=== PATIENT | female | born 1975 | race Caucasian/White ===

== ENCOUNTER → 2018-01-30 14:12 | Outpatient (CLI) | payer OTHER, SELFPAY ==
[2018-02-04 14:14] LABS: HPV Reflexed? NOT INDICATED
== END ==
PROVIDERS: Visit Provider Obstetrics & Gynecology
DX: Z12.4 Encounter for screening for malignant neoplasm of cervix (principal)
CPT/HCPCS: 88175; G0145

== ENCOUNTER → 2018-03-08 08:37 | Outpatient (CLI) | payer OTHER, SELFPAY ==
--- NOTE | 2018-03-08 08:47 | BI_ITS ---
MAMMOGRAPHY - BILATERAL SCREENING 3-D ALEJANDRO SYNTHESIS REASON FOR EXAM: Female, 42 years old. Bilateral Screening 3-D tomosynthesis PERTINENT HISTORY: History of hormone use for over 20 years.. TECHNIQUE: 2-D mammograms and 3-D Alejandro synthesis of the breast (s) were performed. CAD was performed. COMPARISON: Baseline examination. FINDINGS: The breast composition is composed of scattered fibroglandular density. Scattered benign calcifications are seen. No dense spiculated masses or suspicious microcalcifications are identified. No architectural distortion is identified. There is no skin thickening or retraction. There has been no significant change since the prior study. BI/SCREENING MAMM (CAD), BILAT IMPRESSION: No mammographic signs of malignancy. Routine yearly mammograms recommended. ASSESSMENT CATEGORY: BIRADS Category 2: Benign. A letter regarding these results will be sent to the patient by the facility within 30 days. FOLLOW UP RECOMMENDATION: Yearly follow up mammogram recommended. (A) Approximately 10% of breast cancers are not detected by mammography. A normal mammogram should not delay biopsy of a clinically suspicious abnormality. Electronically Signed: Michael Sandoval MD at 17:37 EDT , Service support ,
== END ==
PROVIDERS: Visit Provider Obstetrics & Gynecology
DX: Z12.31 Encounter for screening mammogram for malignant neoplasm of breast (principal)
CPT/HCPCS: 77063; 77067

== ENCOUNTER → 2019-06-04 11:26 | Outpatient (CLI) | payer OTHER, SELFPAY ==
--- NOTE | 2019-06-04 11:31 | BI_ITS ---
MAMMOGRAPHY - BILATERAL SCREENING REASON FOR EXAM: Female, 43 years old. Routine annual screening examination. PERTINENT HISTORY: Non-contributory. TECHNIQUE: Digital bilateral breast alejandro (3D mammographic acquisition) in the CC and MLO projections. 2-D mediolateral oblique (MLO) and craniocaudad (CC) views of both breasts were obtained. CAD: Full Field Digital Mammography with Computer Added Detection was performed. COMPARISON: Comparison is made with prior examination dated March 08, 2018. FINDINGS: Breast Composition: The breasts are extremely dense, which lowers the sensitivity of mammography. There are no dominant masses or suspicious calcifications. No other significant abnormalities are identified. There has been no significant change since the prior study. BI/SCREEN MAMM (CAD) W/ALEJANDRO BILAT IMPRESSION: Stable bilateral screening mammogram. Yearly follow-up mammogram recommended. (A) ASSESSMENT CATEGORY: BIRADS Category 1: Negative. A letter regarding these results will be sent to the patient by the facility within 30 days. Approximately 10% of breast cancers are not detected by mammography. A normal mammogram should not delay biopsy of a clinically suspicious abnormality. [id number] Electronically Signed: Chris Escobar, at 15:04 EDT , Service support ,
== END ==
PROVIDERS: Referring Provider Obstetrics & Gynecology; Visit Provider Obstetrics & Gynecology
DX: Z12.31 Encounter for screening mammogram for malignant neoplasm of breast (principal)
CPT/HCPCS: 77063; 77067

== ENCOUNTER → 2020-05-12 | Outpatient (CLI) | payer OTHER, SELFPAY ==
[2020-05-16 08:23] LABS: HPV Reflexed? NOT INDICATED
== END | disposition home or self-care (01) ==
LOC: LABSPEC 11:35
PROVIDERS: Visit Provider Obstetrics & Gynecology
DX: Z12.4 Encounter for screening for malignant neoplasm of cervix (principal)
CPT/HCPCS: 88175; G0145

== ENCOUNTER → 2020-06-08 10:37 | Outpatient (CLI) | payer OTHER, SELFPAY ==
--- NOTE | 2020-06-08 10:39 | BI_ITS ---
MAMMOGRAPHY - BILATERAL SCREENING REASON FOR EXAM: Female, 44 years old. Routine annual screening examination. PERTINENT HISTORY: Non-contributory. TECHNIQUE: Digital bilateral breast alejandro (3D mammographic acquisition) in the CC and MLO projections. 2-D mediolateral oblique (MLO) and craniocaudad (CC) views of both breasts were obtained. CAD: Full Field Digital Mammography with Computer Added Detection was performed. COMPARISON: Comparison is made with prior study dated 06/04/2019 and 03/08/2018. FINDINGS: Breast Composition: The breasts are extremely dense, which lowers the sensitivity of mammography. There are no dominant masses or suspicious calcifications. No other significant abnormalities are identified. There has been no significant change since the prior study. BI/SCREEN MAMM (CAD) W/ALEJANDRO BILAT IMPRESSION: Stable bilateral screening mammogram. Yearly follow-up mammogram recommended. (A) ASSESSMENT CATEGORY: BIRADS Category 1: Negative. A letter regarding these results will be sent to the patient by the facility within 30 days. Approximately 10% of breast cancers are not detected by mammography. A normal mammogram should not delay biopsy of a clinically suspicious abnormality. [id number] Electronically Signed: Chris Escobar, at 11:20 EDT , Service support ,
== END ==
PROVIDERS: Referring Provider Obstetrics & Gynecology; Visit Provider Obstetrics & Gynecology
DX: Z12.31 Encounter for screening mammogram for malignant neoplasm of breast (principal)
CPT/HCPCS: 77063; 77067

== ENCOUNTER 2021-12-15 12:03 | Outpatient (CLI) | payer OTHER, SELFPAY ==
--- NOTE | 2021-12-15 12:37 | BI_ITS ---
MAMMOGRAPHY - BILATERAL SCREENING REASON FOR EXAM: Female, 46 years old. Routine annual screening examination. PERTINENT HISTORY: Non-contributory. TECHNIQUE: Digital bilateral breast alejandro (3D mammographic acquisition) in the CC and MLO projections. 2-D mediolateral oblique (MLO) and craniocaudad (CC) views of both breasts were obtained. CAD: Full Field Digital Mammography with Computer Added Detection was performed. COMPARISON: Comparison is made with prior examination of 06/08/2020 and 06/04/2019. FINDINGS: Breast Composition: The breasts are extremely dense, which lowers the sensitivity of mammography. There are no dominant masses or suspicious calcifications. No other significant abnormalities are identified. There has been no significant change since the prior study. BI/SCRN MAMM (CAD)W/ALEJANDRO BILAT IMPRESSION: Stable bilateral screening mammogram. Yearly follow-up mammogram recommended. (A) ASSESSMENT CATEGORY: BIRADS Category 1: Negative. A letter regarding these results will be sent to the patient by the facility within 30 days. Approximately 10% of breast cancers are not detected by mammography. A normal mammogram should not delay biopsy of a clinically suspicious abnormality. [id number] Electronically Signed: Chris Escobar MD at 13:58 EST ,
== END 2021-12-15 23:59 | disposition home or self-care (01) ==
LOC: OPBI 12:33
PROVIDERS: Referring Provider Obstetrics & Gynecology; Visit Provider Obstetrics & Gynecology
DX: Z12.31 Encounter for screening mammogram for malignant neoplasm of breast (principal)
CPT/HCPCS: 77063; 77067

== ENCOUNTER → 2022-10-29 | Outpatient (CLI) | payer OTHER, SELFPAY ==
[2022-10-29 11:26] LABS: Hemoglobin A1c 4.9 % (3.8-5.6)
[2022-10-29 11:42] LABS: Vitamin D,25 Hydroxy 35.6 ng/mL
[2022-10-29 11:49] LABS: T4 Free Direct 0.92 ng/dL (0.76-1.46)
== END | disposition home or self-care (01) ==
LOC: WOBLAB 10:47
PROVIDERS: Visit Provider Student in an Organized Health Care Education/Training Program
DX: Z01.419 Encounter for gynecological examination (general) (routine) without abnormal findings (principal)
CPT/HCPCS: 36415; 82306; 83036; 84439; 84443

== ENCOUNTER → 2022-12-18 | Outpatient (CLI) | payer OTHER, SELFPAY ==
--- NOTE | 2022-12-18 09:51 | BI_ITS ---
MAMMOGRAPHY - BILATERAL SCREENING 3-D TOMOSYNTHESIS REASON FOR EXAM: Female, 47 years old. Routine screening PERTINENT HISTORY: No significant family history. TECHNIQUE: 2-D mammograms and 3-D Tomosynthesis of the breast (s) were performed. CAD was performed. COMPARISON: 12/15/2021 FINDINGS: The breast composition is heterogeneously dense that can obscure small breast masses. Scattered benign calcifications are seen. No dense spiculated masses or suspicious microcalcifications are identified. No architectural distortion is identified. There is no skin thickening or retraction. There has been no significant change since the prior study. BI/SCRN MAMM (CAD)W/ALEJANDRO BILAT IMPRESSION: No mammographic signs of malignancy. Routine yearly mammograms recommended. ASSESSMENT CATEGORY: BIRADS Category 2: Benign. A letter regarding these results will be sent to the patient by the facility within 30 days. FOLLOW UP RECOMMENDATION: Yearly follow up mammogram recommended. (A) Approximately 10% of breast cancers are not detected by mammography. A normal mammogram should not delay biopsy of a clinically suspicious abnormality. Electronically Signed: Ede Gutiérrez MD at 11:00 EDT ,
== END | disposition home or self-care (01) ==
LOC: OPBI 09:49
PROVIDERS: Visit Provider Student in an Organized Health Care Education/Training Program
DX: Z12.31 Encounter for screening mammogram for malignant neoplasm of breast (principal)
CPT/HCPCS: 77063; 77067

== ENCOUNTER 2024-06-06 09:34 | Emergency (ER) | payer OTHER, SELFPAY ==
[2024-06-06 09:35] VITALS: BP 139/80; PULSE 121; RESP 22; TEMP 36.3; O2SAT 99
[2024-06-06 09:38] VITALS: BMI 28.8
--- NOTE | 2024-06-06 10:11 | EKG12_ITS ---
Test Reason : SOB Blood Pressure : / mmHG Vent. Rate : 120 BPM Atrial Rate : 120 BPM P-R Int : 134 ms QRS Dur : 066 ms QT Int : 298 ms P-R-T Axes : 048 -16 053 degrees QTc Int : 421 ms Sinus tachycardia Otherwise normal ECG Confirmed by KEHINDE AMIN, ERICK ([id number]), advertising editor ZEHRA BOWER ([id number]) on 06/09/2024 8:09:48 AM Referred By: Confirmed By:ERICK BUSBY MD
--- NOTE | 2024-06-06 10:11 | RAD_ITS ---
STUDY: X-RAY CHEST REASON FOR EXAM: Female, 48 years old. Cough TECHNIQUE: Frontal view of the chest COMPARISON: None. FINDINGS: The lungs are clear. There are no pleural effusions. There is no pneumothorax. The heart is normal in size. The visualized osseous structures are within normal limits. RAD/Chest 1 View (Portable) IMPRESSION: No acute thoracic pathology. Electronically Signed: Sal Escobar MD at 11:23 EDT ,
--- NOTE | 2024-06-06 10:13 | EX.ED.DYSGE1 ---
HPI History of Present Illness Chief Complaint: Shortness of Breath Informant: patient and spouse/S.O. Narrative Narrative: 48-year-old female presenting to the emergency room chief complaint of COVID-19. Patient states she was diagnosed Saturday with COVID-19. She has sore throat productive cough. Fevers have subsided. No vomiting or diarrhea. Decreased p.o. intake. Generalized fatigue. Patient states her chest feels heavy but is not experiencing any pleuritic pain. No rashes. reports that she had a strep test at urgent care that was also negative. PFSH PFSH Home Medications ?Medication ?Instructions ?Recorded ?Last Taken ?Type albuterol sulfate 90 mcg/actuation 2 puff inhalation Q4H PRN PRN 06/06/24 Unknown Rx aerosol inhaler (Ventolin HFA) Wheezing ##1 azithromycin 250 mg tablet See Rx Instructions PO .COMPLEX #6 06/06/24 Unknown Rx (Zithromax Z-Bryce) tabs dexamethasone 6 mg tablet 6 mg PO DAILY #6 tabs 06/06/24 Unknown Rx Allergy/AdvReac Type Severity Reaction Status Date / Time No Known Allergies Allergy Verified 06/06/24 09:34 Social History Smoking Status: Former smoker ROS ROS ED ROS Narrative Generalized fatigue Constitutional Constitutional ED: Reports chills and fever(s); Denies weight loss Eyes Eyes: Denies change in vision or diplopia ENT ENT ED: Reports sore throat; Denies ear pain or rhinorrhea Cardiovascular Cardiovascular: Reports racing heartbeat; Denies chest pain, orthopnea or palpitations Respiratory/Chest Respiratory/Chest: Reports cough, dyspnea, dyspnea on exertion and sputum; Denies orthopnea Gastrointestinal Gastrointestinal: Reports other Details: Decreased p.o. intake ; Denies abdominal pain, diarrhea, nausea or vomiting Genitourinary Genitourinary ED: Denies dysuria, hematuria or urinary frequency Musculoskeletal Musculoskeletal: Denies arthralgias or myalgias Integumentary Denies abscess or rash Neurologic Neurologic: Denies headache(s) or weakness Psychiatric Psychiatric: Denies anxiety, depression, suicidal ideation or suicidal thoughts Endocrine Endocrinology: Denies polydipsia, polyphagia or polyuria Allergic/Immunologic Allergic/Immunologic ED: Denies mouth swelling, tongue swelling or urticaria EXAM Physical Exam Const Vital Signs: 06/06/24 09:35 06/06/24 11:15 06/06/24 11:16 Temperature 97.4 F L 97.9 F Temperature Source Temporal Temporal Pulse Rate 121 H 107 H Respiratory Rate 22 H 20 H Respiratory Effort Short of Breath Blood Pressure 139/80 H 127/79 H Blood Pressure Mean 99 95 Pulse Ox 99 97 Oxygen Delivery Method Room Air Room Air Room Air 06/06/24 11:34 Temperature Temperature Source Pulse Rate 105 H Respiratory Rate 20 H Respiratory Effort Blood Pressure 122/79 H Blood Pressure Mean 93 Pulse Ox 98 Oxygen Delivery Method Room Air Positive well nourished and well developed General Appearance ED: well developed HEENT Reports normocephalic, head/scalp atraumatic and moist mucous membranes HEENT Narrative: Oropharyngeal erythema. Uvula is slightly edematous. No palatal petechiae no evidence of retropharyngeal peritonsillar abscess. Patient has a soft slightly hoarse voice. Eyes PERRL and EOMs intact bilaterally Neck no lymphadenopathy, supple and no JVD Resp normal respiratory effort and clear to auscultation bilaterally Cardio regular rate, regular rhythm and no murmurs Rate: tachycardic GI normal to inspection, nondistended, normoactive bowel sounds and non-tender Palpation: soft Back/Spine no CVA tenderness and normal ROM Extremity normal to inspection General Extremety ED: Negative for edema General Extremity: Negative for edema Neuro oriented x3 and CN's II-XII intact bilaterally Sensorium / Orientation: alert Motor Exam: strength 5/5 throughout Psych mental status grossly normal Mood & Affect: Negative for depressed or tearful Skin no rashes or lesions noted and no wounds MDM MDM MDM Narrative Medical decision making narrative: Differential diagnosis includes but not limited to cardiac dysrhythmia viral syndrome pericardial effusion dehydration electrolyte imbalance endorgan injury/sepsis pulmonary embolism White count 7.6 hemoglobin 14.4 and platelet count of 199. BMP with creatinine 1.06 BUN of 10 anion gap is 4 CO2 is 26. Liver enzymes within normal limits troponin is normal test is negative. My independent interpretation of the chest x-ray is no acute process. CTA of the chest was obtained to rule out pulmonary embolism. This is negative for pulmonary embolism. There is some infiltrative like changes in the right chest. Patient received Toradol Decadron and IV fluids. Heart rate is down to 105. She is feeling better. Patient was ambulated in the department. Pulse ox stayed within normal. Heart rate increased to the 90s to about 110 and she will receive a second liter. She be discharged home with azithromycin and albuterol and Decadron. We did discuss the use of Paxlovid and she declines at this time which I think is reasonable. History & Record Review Discussion w/independent historian: Patient and Significant other Lab Data Attestation: I reviewed the patient's lab results. Labs: Laboratory Results - last 24 hr 06/06/24 10:26 WBC 7.6 RBC 4.65 Hgb 14.4 Hct 42.2 MCV 90.8 MCH 31.0 MCHC 34.1 RDW Std Deviation 42.5 RDW Coeff of Obed 12.8 Plt Count 199 MPV 9.7 Immature Gran % (Auto) 0.400 Neut % (Auto) 82.4 H Lymph % (Auto) 10.9 L Walker % (Auto) 5.8 Eos % (Auto) 0.4 Baso % (Auto) 0.1 Absolute Neuts (auto) 6.3 Absolute Lymphs (auto) 0.83 Nucleated RBC % 0 Sodium 136 Potassium 3.7 Chloride 106 Carbon Dioxide 26.0 Anion Gap 4 L BUN 10 Creatinine 1.06 H Est GFR (MDRD) Af Amer 72 Est GFR (MDRD) Non-Af 59 L BUN/Creatinine Ratio 9.4 L Glucose 105 Calcium 8.7 Total Bilirubin 0.70 Direct Bilirubin 0.21 AST 23 ALT 25 Alkaline Phosphatase 75 Troponin I High Sens < 3 L Total Protein 7.6 Albumin 3.0 L Globulin 4.6 H Serum , Qual NEGATIVE Radiography Diagnostic Testing: Clinical Impression(s) from Imaging Studies Chest X-Ray 06/06/24 10:11 IMPRESSION: No acute thoracic pathology. Electronically Signed: Sal Escobar MD at 11:23 EDT , Chest CTA 06/06/24 11:01 IMPRESSION: No pulmonary embolus. No thoracic aortic aneurysm or dissection. Patchy airspace opacity in the right mid to lower lung field which is consistent with an infectious etiology. Electronically Signed: Sal Escobar MD at 12:22 EDT , EKG Initial EKG: Attestation: I personally reviewed and interpreted this EKG as follows: Comments: Sinus tachycardia ventricular rate of 120 bpm Discharge Plan Triage Chief Complaint: Shortness of Breath ED Provider: Richie iYp Dx/Rx/DC Orders Clinical Impression: COVID-19, Acute dehydration, Acute sore throat Instructions: Coronavirus Disease 2019 (COVID-19): Caring for Yourself or Others Prescriptions: New dexamethasone 6 mg tablet 6 mg PO DAILY Qty: 6 0RF Rx Instructions: Begin 06/07/2024 azithromycin [Zithromax Z-Bryce] 250 mg tablet See Rx Instructions .ROUTE .COMPLEX Qty: 6 0RF Rx Instructions: For 250 mg dose pack: take 500 mg today (day 1), then 250 mg for 4 days (days 2-5) albuterol sulfate [Ventolin HFA] 90 mcg/actuation HFA aerosol inhaler 2 puff inhalation Q4H PRN PRN (Reason: Wheezing) Qty: 1 0RF Rx Instructions: with spacer Primary Care Provider: Care Physician,No Primary Referrals: Care Physician,No Primary [Primary Care Provider] - Print Language: Romansh
[2024-06-06 10:33] LABS: Absolute Lymphocyte Count 0.83 X10^3/uL (0.83-4.51); Absolute Neutrophil Count 6.3 X10^3/uL (2.0-7.7); Basophil# 0.01 X10^3/uL; Basophil% 0.1 % (0-1); Eosinophil# 0.03 X10^3/uL; Eosinophils% 0.4 % (0-5); Hematocrit 42.2 % (37-47); Hemoglobin 14.4 g/dL (12.0-15.0); Lymphocyte # 0.83 X10^3/ul (0.83-4.51); Lymphocyte % 10.9 % (19-41); Mean Corp Hgb Conc 34.1 g/dL (32-36); Mean Corpuscular Volume 90.8 fL (81-99); Mean Platelet Vol. 9.7 fl (6.2-12.0); Monocyte# 0.44 X10^3/uL; Monocyte% 5.8 % (0-10); NRBC Flagged by Analyzer 0 % (0-5); Neutrophil # 6.28 X10^3/uL (2.7-7.7); Neutrophil % 82.4 % (47-70); Platelet Count 199 K/mm3 (150-450); RBC Distribution Width CV 12.8 % (11.6-14.6); RBC Distribution Width SD 42.5 fl (35.1-43.9); Red Blood Count 4.65 M/mm3 (4.2-5.4); White Blood Count 7.6 K/mm3 (4.4-11.0)
[2024-06-06 10:59] LABS: AST(SGOT) 23 U/L (15-37); Alanine Aminotransfer ALT/SGPT 25 U/L (13-56); Alkaline Phosphatase 75 U/L (45-117); Anion Gap 4 (5-15); BUN 10 mg/dL (7-18); BUN/Creat Ratio 9.4 RATIO (10-20); Bilirubin, Direct 0.21 mg/dL (0.00-0.30); Calcium,Total 8.7 mg/dL (8.5-10.1); Chloride 106 mmol/L (98-107); Creatinine, Serum 1.06 mg/dL (0.55-1.02); EST Glomerular Filtration Rate 59 mL/min (>60); Est Glom Filt Rate - Afr Amer 72 mL/min (>60); Globulin 4.6 g/dL (2.2-4.2); Glucose 105 mg/dL (74-106); Potassium 3.7 mmol/L (3.5-5.1); Protein, Total 7.6 g/dL (6.4-8.2); Sodium Level 136 mmol/L (136-145); Troponin-I HS < 3 pg/mL (3.0-54.0)
[2024-06-06 11:00] LABS: Internal QC Validated? YES +Cl - CLEAR BKGD; Pregnancy, Serum, hCG Quali. NEGATIVE Negative; Record Kit Lot#, Serum Preg. HCG0000772476
--- NOTE | 2024-06-06 11:01 | CT_ITS ---
STUDY: CTA CHEST WITH CONTRAST REASON FOR EXAM: Female, 48 years old. Chest pain. Evaluate for pulmonary embolus. RADIATION DOSAGE (If Supplied By Facility): CTDIvol = ( 7 ) mGy, DLP = ( 214 ) mGycm TECHNIQUE: Transaxial imaging was performed following intravenous administration of 100 ml of Isovue-370 contrast material. Coronal and sagittal reformatted images were created. 3D post processed images were created. CT scan performed according to ALARA principles. Automated exposure control used during exam. COMPARISON: No relevant prior comparison study available FINDINGS: LUNGS: There are patchy airspace opacities in the right mid to lower lung field. The left lung is clear. PLEURAL SPACE: There are no pleural effusions. There is no pneumothorax. MEDIASTINUM: The heart and pericardium are within normal limits. There is no pneumomediastinum. There is no thoracic lymphadenopathy. VESSELS There is no pulmonary embolus. The pulmonary artery is normal in caliber. There is no thoracic aortic aneurysm or dissection. UPPER ABDOMEN: Images through the upper abdomen demonstrate no significant abnormality. BONES: There are no destructive osseous lesions. SOFT TISSUES: The visualized soft tissues are unremarkable. CT/CTA Chest W/WO Contrast IMPRESSION: No pulmonary embolus. No thoracic aortic aneurysm or dissection. Patchy airspace opacity in the right mid to lower lung field which is consistent with an infectious etiology. Electronically Signed: Sal Escobar MD at 12:22 EDT ,
[2024-06-06] MEDS: Ketorolac 30 MG/ML Syringe IV (11:06)
[2024-06-06] MEDS: dexAMETHasone 10 MG/ML Vial IV (11:06)
[2024-06-06] MEDS: 0.9% Normal Saline (1000mL) 1,000 ML 1000 ML IV ×2 (11:07→13:24)
[2024-06-06 11:15] VITALS: BP 127/79; PULSE 107; RESP 20; TEMP 36.6; O2SAT 97
[2024-06-06 11:34] VITALS: BP 122/79; PULSE 105; RESP 20; O2SAT 98
[2024-06-06 13:00] VITALS: BP 116/75; PULSE 98; RESP 18; TEMP 37.1; O2SAT 96
[2024-06-06 13:26] VITALS: O2SAT 98
[2024-06-06 14:00] VITALS: BP 113/68; PULSE 99; RESP 18; TEMP 37; O2SAT 98
== END 2024-06-06 14:02 | disposition home or self-care (01) ==
LOC: ED 11:24
PROVIDERS: Emergency Provider Emergency Medicine; Visit Provider Emergency Medicine
DX: U07.1 COVID-19 (principal); E86.0 Dehydration; Z87.891 Personal history of nicotine dependence
CPT/HCPCS: 71045; 71275; 80048; 80076; 84484; 84703; 85025; 93005; 99284; J7030; Q9967; A4216